=== PATIENT | male | born 1985 | race Two or more races ===

== ENCOUNTER 2016-07-23 13:20 | Outpatient (CLI) | payer BC | END 2016-07-23 23:59 | disposition home or self-care (01) | LOC: WOU 13:20 | PROVIDERS: ATTEND Podiatrist Foot & Ankle Surgery | DX: Z09 Encounter for follow-up examination after completed treatment for conditions other than malignant neoplasm (principal); R60.0 Localized edema; R23.4 Changes in skin texture; Z87.891 Personal history of nicotine dependence | CPT/HCPCS: G0463 ==